=== PATIENT | male | born 1975 | race Caucasian/White ===

== ENCOUNTER 2016-07-22 11:34 | Emergency (ER) | payer OTHER ==
[~2016-07-22] VITALS: Ht 182.9 cm; Wt 79.5 kg
[~2016-07-22 11:34] MED LIST: CLIN150C2 PO; HYDR-4003 PO
[2016-07-22 11:47] VITALS: BP 134/88; PULSE 122; RESP 16; O2SAT 96
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
[2016-07-22] MEDS ORDERED: HYDROcodone-APAP 5-325 mg Tablet PO ONE (12:00)
[2016-07-22] MEDS ORDERED: Lidocaine 2% 5 mL Urojet Topical Jelly Syringe MUC_MEMBRM ONE (12:00)
[2016-07-22] MEDS ORDERED: Lidocaine 2% 6mL Topical Jelly MUC_MEMBRM ONE (12:15)
[2016-07-22 12:33] VITALS: BP 134/85; PULSE 111; RESP 18; O2SAT 95
== END 2016-07-22 12:30 | disposition home or self-care (01) ==
LOC: SED 11:34
DX: T23.102A Burn of first degree of left hand, unspecified site, initial encounter (principal); T31.0 Burns involving less than 10% of body surface; X15.0XXA Contact with hot stove (kitchen), initial encounter; Y92.9 Unspecified place or not applicable; Y93.K9 Activity, other involving animal care; Y99.8 Other external cause status; F17.200 Nicotine dependence, unspecified, uncomplicated; Z88.0 Allergy status to penicillin